=== PATIENT | female | born 1975 | race Caucasian/White ===

== ENCOUNTER 2017-11-25 11:18 | Emergency (ER) | payer OTHER ==
[2017-11-25 11:37] VITALS: BP 129/81
--- NOTE | 2017-11-25 11:40 | UC ---
Abdominal Pain Female HPI - HPI Summary HPI Summary: 42 yo female presents with RLQ pain. She tells me that last night she developed generalized abdominal pain, felt "clammy", and nauseous. This morning the pain had moved to her RLQ. She rates the pain 5/10 and describes it as cramping and aches. Her last BM was yesterday and was regular for her - no blood in stool. She started a new OBC about a week ago and wonders if this has anything to do with her pain. Denies fever, SOB, chest pain, vomiting, diarrhea, loose stools, dysuria, or back/flank pain. - History of Current Complaint Hx Obtained From: Patient Hx Last Menstrual Period: 11/13/17 Onset/Duration: Sudden Onset Severity Initially: Moderate Severity Currently: Moderate Pain Intensity: 5 Pain Scale Used: 0-10 Numeric <Monster Rodriguez - Last Filed: 11/25/17 12:00> <Milagro Ross - Last Filed: 11/25/17 12:23> - History of Current Complaint Chief Complaint: UCAbdominalPain Stated Complaint: RIGHT SIDE PAIN Allergies/Adverse Reactions: Allergies Allergy/AdvReac Type Severity Reaction Status Date / Time No Known Allergies Allergy Verified 03/12/16 13:01 Home Medications: Home Medications ALPRAZolam TAB* [Xanax TAB*] 0.25 mg PO Q6H PRN 11/25/17 [History Confirmed 09/09] DULoxetine DR CAP* [Cymbalta CAP*] 60 mg PO DAILY 11/25/17 [History Confirmed ] Ibuprofen TAB* [Advil TAB*] 400 mg PO Q6H PRN 11/25/17 [History Confirmed ] PMH/Surg Hx/FS Hx/Imm Hx - Additional Past Medical History Additional PMH: Chronic abdominal pain Psychological History: Anxiety, Depression - Surgical History Surgical History: Yes Surgery Procedure, Year, and Place: Tonsilectomy, 1992 - Family History Known Family History: Positive: Unknown Family History: PT ADOPTED - FAMILY HX UNKNOWN - Social History Occupation: Employed Full-time Lives: With Family Alcohol Use: Daily Alcohol Amount: 1-3 Substance Use Type: None Smoking Status (MU): Former Smoker Type: Cigarettes Amount Used/How Often: 1/2 pack Length of Time of Smoking/Using Tobacco: 3 years, then 3 months in 1999 Have You Smoked in the Last Year: No When Did the Patient Quit Smoking/Using Tobacco: 1996 - Immunization History Most Recent Influenza Vaccination: 2014 Most Recent Tetanus Shot: utd <Monster Rodriguez - Last Filed: 11/25/17 12:00> Review of Systems Constitutional: Negative Skin: Negative Respiratory: Negative Cardiovascular: Negative Gastrointestinal: Abdominal Pain, Nausea Genitourinary: Negative Neurovascular: Negative Neurological: Negative Psychological: Negative All Other Systems Reviewed And Are Negative: Yes <Monster Rodriguez - Last Filed: 11/25/17 12:00> Physical Exam - Summary Physical Exam Summary: GENERAL: NAD. WDWN. No pain distress. SKIN: No rashes, sores, lesions, or open wounds. NECK: Supple. Nontender. No lymphadenopathy. CHEST: CTAB. No r/r/w. No accessory muscle use. Breathing comfortably and in no distress. CV: RRR. Without m/r/g. Pulses intact. Brisk cap refill. ABDOMEN: Moderate RLQ tenderness. Soft. No distention or guarding. No CVA tenderness. Bowel sounds present. Weakly positive psoas sign. Negative obturator and rovsing's. NEURO: Alert. CN II-XII grossly intact. PSYCH: Age appropriate behavior. Triage Information Reviewed: Yes Vital Signs: Initial Vital Signs Temp 98.9 F 11/25/17 11:28 Pulse 83 11/25/17 11:28 Resp 11/25/17 11:28 BP 129/81 11/25/17 11:28 Pulse Ox 98 11/25/17 11:28 Laboratory Tests 11/25/17 11/25/17 11:51 11:53 POC Urine Color Yellow POC Urine Clarity Clear POC Urine pH 7.5 POC Ur Specif [place] 1.020 POC Urine Protein 1+ A POC Ur Glucose (UA) Negative POC Urine Ketones Negative POC Urine Blood Negative POC Urine Nitrite Negative POC Urine Bilirubin Negative POC Urine Urobilinogen 0.2 POC U Leukocyte Esteras Negative POC Ur Test Negative <Monster Rodriguez - Last Filed: 11/25/17 12:00> Vital Signs: Initial Vital Signs Temp 98.9 F 11/25/17 11:28 Pulse 83 11/25/17 11:28 Resp 11/25/17 11:28 BP 129/81 11/25/17 11:28 Pulse Ox 98 11/25/17 11:28 <Milagro Ross - Last Filed: 11/25/17 12:23> Abd Pain Female Course/Dx - Course Course Of Treatment: Low suspicion for appendicitis, but given her symptoms and pain that has localized to RLQ - I believe urgent pathology should be ruled out. Therefore I have advised her to go to the ER for further evaluation. Pt was agreeable to this plan - Differential Dx/Diagnosis Provider Diagnoses: RLQ pain <Monster Rodriguez - Last Filed: 11/25/17 12:00> Discharge - Sign-Out/Discharge Documenting (check all that apply): Discharge/Admit/Transfer - Billing Disposition and Condition Condition: STABLE Disposition: Home <Monster Rodriguez - Last Filed: 11/25/17 12:00> - Billing Disposition and Condition Condition: STABLE Disposition: Home <Milagro Ross - Last Filed: 11/25/17 12:23> - Discharge Plan Condition: Stable Disposition: HOME Referrals: Randy De Oliveira, MANAGER ENTRY [Primary Care Provider] - Additional Instructions: Please go to the ER for further evaluation of your abdominal pain Attestation Statement Provider Attestation: I was available for consult. This patient was seen by the DANETTE. The patient was not presented to, seen by, or examined by me. -Jean Paul <Milagro Ross - Last Filed: 11/25/17 12:23>
== END 2017-11-25 12:05 | disposition home or self-care (01) ==
LOC: UCEAST 11:18
DX: R10.31 Right lower quadrant pain (principal); F32.9 Major depressive disorder, single episode, unspecified; F41.9 Anxiety disorder, unspecified; Z79.899 Other long term (current) drug therapy; Z87.891 Personal history of nicotine dependence
CPT/HCPCS: 81003; 84702; 99212; G0463

== ENCOUNTER 2017-11-25 12:24 | Observation (INO) | payer OTHER ==
[2017-11-25 14:27] LABS: ABS Basophils 0.1 10^3/ul (0-0.2); ABS Eosinophils 0.1 10^3/ul (0-0.6); ABS Lymphocytes 1.9 10^3/ul (1.0-4.8); ABS Monocytes 0.9 10^3/ul (0-0.8); ABS Neutrophils 10.1 10^3/ul (1.5-7.7); ABS Nucleated RBC 0 10^3/ul; Hematocrit 38 % (35-47); Hemoglobin 12.9 g/dl (12.0-16.0); Lymphocyte % 14.4 % (25-47); Mean Corpuscular HGB Conc 34 g/dl (31-36); Mean Corpuscular Hemoglobin 32 pg (27-31); Mean Corpuscular Volume 93 fL (80-97); Mean Platelet Volume 8.7 um3 (7.4-10.4); Nucleated Red Blood Cells % 0; Platelet Count 217 10^3/ul (150-450); Red Blood Count 4.09 10^6/ul (4.00-5.40); Red Cell Distribution Width 13 % (10.5-15); White Blood Count 13.1 10^3/ul (3.5-10.8)
[2017-11-25] MEDS ORDERED: Iohexol 300* (CONTRAST) 10 ML SDV IV ONE (15:57)
--- NOTE | 2017-11-25 16:29 | RAD ---
INDICATION: Right lower quadrant pain COMPARISON: None TECHNIQUE: Axial source images were obtained from the hemidiaphragms to the symphysis pubis following administration of oral and intravenous contrast. 100 mL Omnipaque 300 was utilized. Coronal and sagittal reconstructed images were acquired. Lung bases: The lung bases are clear. Liver: The liver is normal in size. There are no masses. There is no ductal dilatation. Gallbladder: There are no calcified gallstones. There is no evidence of wall thickening or pericholecystic fluid. Spleen: The spleen is normal in size. There are no masses. Pancreas: There is no focal pancreatic mass or ductal dilatation. Adrenal glands: There is no evidence of adrenal mass. Kidneys: The kidneys are normal in size and position. There are prompt nephrograms and there is prompt excretion bilaterally. There are no renal parenchymal masses. There is no evidence of nephrolithiasis. Adenopathy: There is no evidence of adenopathy by size criteria. Fluid collections: There are no free or localized fluid collections. Vessels:There are no significant atherosclerotic changes involving the aorta. There is no focal aneurysm. The iliac vessels are normal in caliber. The IVC appears normal. GI tract: The upper GI tract is unremarkable. The appendix is dilated and fluid-filled measures mild periappendiceal inflammatory change. There is mild thickening of cecal tip and the terminal ileum. This is likely secondary inflammatory response.. Pelvic organs: The uterus and adnexa appear normal Bladder: There are no bladder masses. Abdominal and pelvic soft tissues: The extraperitoneal abdominal and pelvic soft tissues appear normal.. Osseous structures: There are no acute osseous findings. Other: None IMPRESSION: CT FINDINGS OF ACUTE APPENDICITIS
--- NOTE | 2017-11-25 16:42 | ED ---
Abdominal Pain/Female - HPI Summary HPI Summary: Patient is a 42-year-old female presenting to the ED with complaint of diffuse abdominal pain which started somewhat last evening, worsened today and is now localizing over into the right lower quadrant. She was seen at urgent care prior to coming to the ED. She denies any recent fevers, sweats, chills. Denies any diarrhea or constipation. Endorses nausea, but denies vomiting. She is otherwise healthy. Take Cymbalta and OCP. Last food intake last evening, black tea this morning. She declines a medications or nausea medications on arrival. IV is placed. - History of Current Complaint Chief Complaint: EDAbdPain Stated Complaint: LOWER RT SIDE ABD PAIN Time Seen by Provider: 11/25/17 14:06 Hx Obtained From: Patient Hx Last Menstrual Period: 11/13/17 ?: No Onset/Duration: Sudden Onset Timing: Constant Severity Initially: Mild Severity Currently: Mild Pain Intensity: 5 Pain Scale Used: 0-10 Numeric Location: Discrete At: RLQ Radiates: No Character: Sharp Aggravating Factor(s): Nothing Alleviating Factor(s): Nothing Associated Signs and Symptoms: Positive: Nausea - Risk Factors Ectopic Risk Factor: Negative Ovarian Torsion Risk Factor: Reproductive Age Allergies/Adverse Reactions: Allergies Allergy/AdvReac Type Severity Reaction Status Date / Time No Known Allergies Allergy Verified 11/25/17 12:29 Home Medications: Home Medications DULoxetine DR MARIEE* [Cymbalta CAP*] 60 mg PO DAILY 11/25/17 [History Confirmed ] Levonorgestrel-Eth Estrad (NF) [Quasense (NF) 0.15/0.03] 1 tab PO DAILY [History Confirmed 11/25/17] PMH/Surg Hx/FS Hx/Imm Hx Previously Healthy: Yes Endocrine/Hematology History: Reports: Other Endocrine/Hematological Disorders - per pt: high DHEA level Denies: Hx Diabetes, Hx Thyroid Disease Cardiovascular History: Reports: Hx Angina Denies: Hx Hypercholesterolemia, Hx Hypertension, Hx Pacemaker/ICD, Hx Peripheral Vascular Disease Respiratory History: Reports: Hx Asthma, Hx Seasonal Allergies Comment Only: Hx Chronic Obstructive Pulmonary Disease (COPD) - UNK Adopted GI History: Reports: Other GI Disorders - travel related gastroenteritis, 05/08 - 06/09 Musculoskeletal History: Reports: Hx Orthopedic Injury - L femur fx, R shoulder dislocation Denies: Hx Arthritis, Hx Rheumatoid Arthritis, Hx Osteoporosis Sensory History: Denies: Hx Cataracts, Hx Contacts or Glasses, Hx Glaucoma, Hx Hearing Aid Opthamlomology History: Denies: Hx Cataracts, Hx Contacts or Glasses, Hx Glaucoma Neurological History: Reports: Other Neuro Impairments/Disorders - Head injury with LOC for 24 hours Denies: Hx Headaches, Hx Seizures, Hx Transient Ischemic Attacks (TIA) Psychiatric History: Reports: Hx Anxiety Denies: Hx Depression, Hx Panic Disorder - Cancer History Hx Chemotherapy: No Hx Radiation Therapy: No - Surgical History Surgery Procedure, Year, and Place: Tonsilectomy, 1992 Hx Anesthesia Reactions: No - Immunization History Date of Tetanus Vaccine: up to date Date of Influenza Vaccine: 2014 Hx Pertussis Vaccination: No Immunizations Up to Date: Unable to Obtain/Confirm Infectious Disease History: No Infectious Disease History: Denies: History Other Infectious Disease, Traveled Outside the [place] in Last 30 Days - Family History Known Family History: Positive: Unknown Family History: PT ADOPTED - FAMILY HX UNKNOWN - Social History Occupation: Employed Full-time Lives: With Family Alcohol Use: Daily Alcohol Amount: 1-3 Hx Substance Use: No Substance Use Type: Reports: None Hx Tobacco Use: No Smoking Status (MU): Former Smoker Type: Cigarettes Amount Used/How Often: 1/2 pack Length of Time of Smoking/Using Tobacco: 3 years, then 3 months in 1999 Have You Smoked in the Last Year: No Review of Systems Constitutional: Negative Negative: Fever, Chills, Fatigue Negative: Palpitations, Chest Pain Negative: Shortness Of Breath, Cough Positive: Abdominal Pain - right lower quadrant pain Genitourinary: Negative Positive: no symptoms reported, see HPI Musculoskeletal: Negative Skin: Negative Neurological: Negative All Other Systems Reviewed And Are Negative: Yes Physical Exam Triage Information Reviewed: Yes Vital Signs On Initial Exam: Initial Vitals Temp Pulse Resp BP Pulse Ox 98.7 F 77 12 132/75 99 11/25/17 12:27 11/25/17 12:27 11/25/17 12:27 11/25/17 12:27 11/25/17 12:27 Vital Signs Reviewed: Yes Appearance: Positive: Well-Appearing, Well-Nourished Skin: Positive: Warm, Skin Color Reflects Adequate Perfusion Eyes: Positive: EOMI, CLOTILDE, Conjunctiva Clear Neck: Positive: Nontender, No Lymphadenopathy Respiratory/Lung Sounds: Positive: Clear to Auscultation, Breath Sounds Present Cardiovascular: Positive: RRR, Pulses are Symmetrical in both Upper and Lower Extremities Abdomen Description: Positive: Soft, McBurney's Point Tenderness. Negative: CVA Tenderness (R), CVA Tenderness (L), Distended, Guarding Bowel Sounds: Positive: Present Musculoskeletal: Positive: Normal, Strength/ROM Intact Neurological: Positive: Sensory/Motor Intact, Alert, Oriented to Person Place, Time, Speech Normal Psychiatric: Positive: Normal, Affect/Mood Appropriate AVPU Assessment: Alert Diagnostics - Vital Signs Vital Signs Temp Pulse Resp BP Pulse Ox 11/25/17 14:50 64 162/95 99 11/25/17 12:27 98.7 F 77 12 132/75 99 - Laboratory Lab Results: Lab Results 11/25/17 11/25/17 11/25/17 Range/Units 14:14 14:14 14:14 WBC 13.1 H (3.5-10.8) 10^3/ul RBC 4.09 (4.00-5.40) 10^6/ul Hgb 12.9 (12.0-16.0) g/dl Hct 38 (35-47) % MCV 93 (80-97) fL MCH 32 H (27-31) pg MCHC 34 (31-36) g/dl RDW 13 (10.5-15) % Plt Count 217 (150-450) 10^3/ul MPV 8.7 (7.4-10.4) um3 Neut % (Auto) 77.0 (38-83) % Lymph % (Auto) 14.4 L (25-47) % [place] % (Auto) 6.9 (0-7) % Eos % (Auto) 1.0 (0-6) % Baso % (Auto) 0.7 (0-2) % Absolute Neuts (auto) 10.1 H (1.5-7.7) 10^3/ul Absolute Lymphs (auto) 1.9 (1.0-4.8) 10^3/ul Absolute Monos (auto) 0.9 H (0-0.8) 10^3/ul Absolute Eos (auto) 0.1 (0-0.6) 10^3/ul Absolute Basos (auto) 0.1 (0-0.2) 10^3/ul Absolute Nucleated RBC 0 10^3/ul Nucleated RBC % 0 Sodium 138 (135-145) mmol/L Potassium 3.9 (3.5-5.0) mmol/L Chloride 105 (101-111) mmol/L Carbon Dioxide 28 (22-32) mmol/L Anion Gap 5 (2-11) mmol/L BUN 9 (6-24) mg/dL Creatinine 0.65 (0.51-0.95) mg/dL Est GFR ( Amer) 119.8 (>60) Est GFR (Non-Af Amer) 99.0 (>60) BUN/Creatinine Ratio 13.8 (8-20) Glucose 97 (70-100) mg/dL Lactic Acid 0.7 (0.5-2.0) mmol/L Calcium 8.8 (8.6-10.3) mg/dL Magnesium 1.9 (1.9-2.7) mg/dL Total Bilirubin 0.90 (0.2-1.0) mg/dL AST 15 (13-39) U/L ALT 18 (7-52) U/L Alkaline Phosphatase 71 (34-104) U/L C-Reactive Protein 27.58 H (<8.01) mg/L Total Protein 6.7 (6.4-8.9) g/dL Albumin 4.0 (3.2-5.2) g/dL Globulin 2.7 (2-4) g/dL Albumin/Globulin Ratio 1.5 (1-3) Lipase 18 (11.0-82.0) U/L Beta HCG, Quant < 0.60 mIU/mL Result Diagrams: 11/25/17 14:14 11/25/17 14:14 Lab Statement: Any lab studies that have been ordered have been reviewed, and results considered in the medical decision making process. Abdominal Pain Fem Course/Dx - Course Course Of Treatment: During the course of treatment, the patient is evaluated for right lower quadrant pain. Obturator sign positive, psoas not performed. Right lower quadrant pain on palpation over McBurney's point. No tenderness in all other quadrants. Denies any CVA tenderness. Denies any urinary symptoms. CT abdomen/pelvis obtained which shows an acute appendicitis. Labs obtained with a WBC of 13.1. CRP is 27. Dr. Jean, surgery, called at 4:40 PM who agrees to come see patient in the ED. Patient continues to decline any nausea or pain medication. - Diagnoses Provider Diagnoses: Appendicitis Discharge - Sign-Out/Discharge Documenting (check all that apply): Discharge/Admit/Transfer - Discharge Plan Condition: Good Disposition: ADMITTED TO [facility] - Billing Disposition and Condition Condition: GOOD Disposition: Admitted to [facility]
[2017-11-25] MEDS ORDERED: Piperacillin/Tazobac ADVAN(*) 3.375 GM in NS 0.9% 100 ML* 100 ML IVPB ONE (17:12)
[2017-11-25] MEDS ORDERED: NS 0.9% 1000 ML* 1,000 ML IV ONE (17:14)
[2017-11-25] MEDS ORDERED: Dexamethasone IV* 4 MG/ML 1 ML (4 MG) ONE (17:44)
[2017-11-25] MEDS ORDERED: Lidocaine 2% PF * 5 ML VIAL ONE (17:44)
[2017-11-25] MEDS ORDERED: fentaNYL* 50 MCG/ML 2 ML VIAL (100 MCG VIAL) ONE ×2 (17:44→18:54)
[2017-11-25] MEDS ORDERED: Ondansetron ODT TAB* 4 MG ONE (17:44)
[2017-11-25] MEDS ORDERED: Midazolam* 1 MG/ML 5 ML VIAL (5 MG) ONE (17:44)
[2017-11-25] MEDS ORDERED: Propofol* 10 MG/ML 20 ML BTL IV PUSH ONE ×2 (17:44→18:42)
[2017-11-25] MEDS ORDERED: Cisatracurium* 2 MG/ML MDV 5 ML ONE (17:44)
[2017-11-25] MEDS ORDERED: Ketorolac INJ* 30 MG/ML 1 ML VIAL ONE (17:45)
[2017-11-25] MEDS ORDERED: oxyCODONE/Acetamin 5/325 MG* TAB PO PRN ×2 (17:51→19:50)
[2017-11-25] MEDS ORDERED: Naloxone* 0.4 MG/ML 1 ML VIAL IV PRN (17:51)
[2017-11-25] MEDS ORDERED: Ondansetron INJ* 2 MG/ML VIAL IV PRN ×2 (17:51→19:50)
[2017-11-25] MEDS ORDERED: DiMENhydriNATE IV* 50 MG/ML VIAL IV PUSH PRN (17:51)
[2017-11-25] MEDS ORDERED: fentaNYL* 50 MCG/ML 2 ML VIAL (100 MCG VIAL) IV PRN (17:51)
[2017-11-25] MEDS ORDERED: Bupivacaine 0.25% W/EPI* 10 ML SDV ONE (18:10)
[2017-11-25] MEDS ORDERED: Bupivacaine 0.5% SDV PF* 30ML VIAL ONE (18:10)
[2017-11-25] MEDS ORDERED: Famotidine IV* 10 MG/ML 2 ML (20 mg) ONE (18:42)
[2017-11-25] MEDS ORDERED: Glycopyrrolate IV* 0.2 MG/ML 1 ML VIAL ONE (19:24)
[2017-11-25] MEDS ORDERED: Neostigmine Methylsulfate* 2 MG/2 ML SYRINGE ONE (19:24)
[2017-11-25] MEDS ORDERED: HYDROmorphone INJ* 0.5 MG/0.5 ML SYRINGE ONE (19:26)
--- NOTE | 2017-11-25 19:44 | BRIEFOPN ---
Brief Operative Note - Surgery Procedures: OPERATIVE REPORT PRE-OP: Acute appendicitis POST-OP: Acute suppurative appendicitis PROCEDURE: laparoscopic appendectomy SURGEON: MD Jean ANESTHESIA: General with Local ; Dr. Lema ASST: none IVF: one liter of crystalloid EBL: min SPECIMEN:appendix DRAIN: none WOUND CLASS: clean contaminated COMPLICATIONS: none TO PACU
[2017-11-25] MEDS ORDERED: Morphine VIAL* 4 MG/ML VIAL (1 ml vial) IV PRN (19:50)
[2017-11-25] MEDS ORDERED: Ketorolac INJ* 30 MG/ML 1 ML VIAL IV PUSH PRN (19:50)
[2017-11-25] MEDS ORDERED: Acetaminophen TAB* 325 MG PO PRN (19:50)
[2017-11-25] MEDS: NS 0.9% 1000 ML* 1,000 ML IV SCH (21:19)
--- NOTE | 2017-11-25 22:09 | HP ---
CC: [facility]; [facility], attn: Randy De Oliveira NP* HISTORY AND PHYSICAL: DATE OF ADMISSION: 11/25/17 CHIEF COMPLAINT: Right lower quadrant abdominal pain. HISTORY OF PRESENT ILLNESS: Ms. Karmen Viveros is a pleasant 42-year-old woman, who developed a generalized abdominal discomfort yesterday. This was associated with some nausea without vomiting. She had no diarrhea. She felt warm and chill last night, but did not take her temperature. Over the course of this morning and into the early afternoon, the pain became more localized and severe in the right lower quadrant making it hard for her to walk and move. She has had no back or flank discomfort and there has been no urinary complaints. When she presented to the emergency room, she was noted to be afebrile. She has tenderness in the right lower quadrant. White blood cell count was noted to be 13,000 without shift. She had a C-reactive protein of 27. Beta hCG was negative. She underwent a CT scan of the abdomen and pelvis. I did review these images. These showed findings consistent with acute appendicitis. There was no evidence of extraluminal air, fluids or abscess formation. Surgical consultation was obtained. PAST MEDICAL HISTORY: Anxiety/depression. PAST SURGICAL HISTORY: Tonsillectomy. MEDICATIONS: Medicines include: 1. Oral contraceptive. 2. Cymbalta 60 mg daily. ALLERGIES: She has no known drug allergies. SOCIAL HISTORY: She is , has 3 stepchildren. She does not use tobacco. Drinks alcohol on a social basis. She is self-employed in event planning and wedding planning. REVIEW OF SYSTEMS: Cerebrovascular: No dizziness or visual disturbances. Cardiovascular: No chest pain, shortness of breath, or cardiac disease. Pulmonary: No wheezing, hemoptysis, or obstructive lung disease. GI: No chronic abdominal discomfort and otherwise as above. : No urgency or hematuria. PHYSICAL EXAMINATION GENERAL: She is a well-developed, well-nourished female with normal attention to grooming. She is awake, alert and conversive and quite pleasant. VITAL SIGNS: Temperature is 98.7, pulse 77, blood pressure 144/99. LUNGS: Clear to auscultation with normal respiratory effort. HEART: Regular rate and rhythm without murmurs, rubs or gallops. ABDOMEN: Soft and nondistended. She has no prior surgical incisions or hernias. She has diminished bowel sounds throughout. She has tenderness with some voluntary guarding in the right lower quadrant and no generalized peritoneal irritation. EXTREMITIES: Showed no cyanosis or edema. PSYCHIATRIC: She is awake, alert, and oriented x3. She has normal judgement and insight. IMPRESSION: Acute appendicitis. PLAN: Laparoscopic appendectomy today. I discussed the history, clinical exam findings as well as the laboratory and radiologic workup and all the findings that are consistent with acute appendicitis. We discussed options of care and I recommend laparoscopic appendectomy today. We discussed the risks, but not limited to bleeding, infections, intraabdominal abscess formation, injury to peritoneal and retroperitoneal structures, possibility of abscess formation, possibility of an open procedure, possibility of other indicated procedures depending on findings at surgery were all discussed. We also discussed the risk of general anesthesia, deep vein thrombosis, pulmonary embolism, recovery time and possible hospital stays. In addition, we did discuss nonoperative management of acute appendicitis with IV and oral antibiotics, but I did not recommend this pathway and she also would prefer to proceed with the surgery. She will be kept n.p.o., IV antibiotics will be started as well as IV fluids and she will be planned for a surgery later today. [id number]/[facility] #: [id number] MICHELLE
--- NOTE | 2017-11-25 22:26 | OP ---
CC: [facility]; [facility]* OPERATIVE REPORT: DATE OF OPERATION: 11/25/17 - Inpatient, room SSU 333-01. DATE OF : 71 SURGEON: Sean Pena MD TALENT MANAGEMENT MANAGER: None. ANESTHESIOLOGIST: Dr. Lema. ANESTHESIA: General with local. PRE-OP DIAGNOSIS: Acute appendicitis. POST-OP DIAGNOSIS: Acute suppurative appendicitis. OPERATIVE PROCEDURE: Laparoscopic appendectomy. ESTIMATED BLOOD LOSS: Minimal. IV FLUIDS: 1 L of crystalloid. SPECIMEN: Appendix. DRAINS: None. COMPLICATIONS: None. WOUND CLASSIFICATION: II. BRIEF HISTORY: Ms. Melissa Viveros is a 42-year-old woman who presented to the emergency room with 24 hours of abdominal pain, worsening in the right lower quadrant. Her white blood cell count was 13,000. A CAT scan confirmed acute appendicitis. She is now being taken to the operating room for a laparoscopic appendectomy. DESCRIPTION OF PROCEDURE: Written informed consent was obtained, the abdomen was marked with indelible ink, and preoperative antibiotics were administered. The patient was taken to the operating room and placed in the supine position. Sequential compression devices and a warming blanket were applied. Anesthesia was administered and the abdomen was prepped and draped in usual sterile fashion. Time-out verification was completed. Initially, a small transverse incision was made just above the umbilicus in the midline. The peritoneal cavity was entered under direct vision. A 12-mm blunt port was inserted. The abdomen was insufflated to 15 mmHg. Under direct vision, a left lower quadrant 5-mm port and a second 5 mm suprapubic port were placed. There was a small amount of turbid fluid in the right lower quadrant. The appendix was identified. It was intraperitoneal and suppuratively inflamed. There was some fat from the sigmoid colon adherent to this and this was removed bluntly. The terminal ileum and cecum appeared to be unremarkable. The uterus and right ovary were also normal. The appendix was acutely inflamed with suppurative inflammation, but no evidence of gangrene or perforation and there was no abscess. The mesoappendix was divided sequentially with the LigaSure from the distal to the proximal appendix down to the base of the cecum. The cecum was soft and pliable without evidence of an acute inflammation and a jauregui load of 45 mm stapler was used to fire across the base of the cecum to amputate the appendix. The appendix was removed with an EndoCatch bag through the umbilical incision. Staple line was intact without bleeding. The right lower quadrant was irrigated. Hemostasis was assured. All ports were removed under direct vision of the camera. There was no abdominal wall bleeding. The umbilical fascia was closed with interrupted 0 Vicryl suture. The skin at the other three incisions was approximated with subcuticular 4-0 Vicryl suture. Steri-Strips were applied. The patient tolerated the procedure well, was taken to the recovery room in stable condition. [id number]/[facility] #: [id number] MTDD
[2017-11-26] MEDS: NS 0.9% 1000 ML* 1,000 ML IV SCH (05:12)
--- NOTE | 2017-11-26 08:59 | PN ---
Progress Note - Progress Note Date of Service: 11/26/17 SOAP: Subjective: Doing well-tolerating liquids Ambulating to bathroom Pain adequately controlled Objective: Temp Pulse Resp BP Pulse Ox 99.2 F 61 16 147/79 100 11/26/17 02:36 11/26/17 02:36 11/26/17 02:36 11/26/17 02:36 11/26/17 02:36 Intake & Output 11/24/17 11/25/17 11/26/17 11/27/17 06:59 06:59 06:59 06:59 Intake Total 4059 Output Total 1450 Balance 2609 Weight 170 lb Intake: IV Fluids 2829 LR 1850 NS (0.9%) 979 Oral 1230 Output: Urine 1250 Fuchs 200 PEX: Comfortable Lungs are clear Abd is soft and non-distended. Incisions are clean and dry. Ext without edema Assessment: POD# 1 s/p lap appy for acute appendicitis Plan: Advance diet D/C home today Instructions given Follow up in office next week No antibiotics needed.
[2017-11-26 10:36] VITALS: BP 132/71
--- NOTE | 2017-11-26 13:51 | DS ---
Amended report to enter co-signing physician. CC: Randy De Oliveira, TRUE, SACK SEWER* DISCHARGE SUMMARY: DATE OF ADMISSION: 11/25/17 DATE OF DISCHARGE: 11/26/17 ATTENDING SURGEON: Dr. Sean Pena (dictated by WALKER Lozano). HOSPITAL COURSE: Please refer to the admission history and physical and operative note for details. Briefly, the patient was taken to the operating room on 11/25/17 and laparoscopic appendectomy for acute non-ruptured appendicitis with Dr. Pena. She had had an uneventful postoperative course and has only required Tylenol postoperatively. She is tolerating diet as of the morning of discharge. PHYSICAL EXAMINATION: Maximum temperature 99.2, blood pressure 147/79, pulse 61 , respirations 16, room air saturation 100%. General: Well-nourished, comfortable- appearing female in no acute distress (the patient was seen and examined with Dr. Pena). Laparoscopic incision sites are clean and dry without evidence of infection. Abdomen: Soft with minimal incisional tenderness. IMPRESSION: Status post laparoscopic appendectomy for acute non-ruptured appendicitis. PLAN: Home today. Instructions were reviewed in both verbal and written forms. The patient has a followup with our office on 12/03/17. A prescription for Percocet was e-sent to her pharmacy ([facility] checked). WALKER LOZANO [id number]/[facility] #: [id number] MTDD
== END 2017-11-26 11:30 | disposition home or self-care (01) ==
LOC: ED 12:24 → OR 19:00 → INTOOBSV 21:00 → SSU 21:00
PROVIDERS: ADMIT Surgery; ATTEND Surgery
DX: K35.80 Unspecified acute appendicitis (principal); R11.0 Nausea
CPT/HCPCS: 36415; 74177; 80053; 83605; 83690; 83735; 84702; 85025; 86140; 88304; 96374; 99284; A9270-GY; C1776; G0378; J1100; J1170; J1885; J2250; J2543; J2704; J3010; Q9967